=== PATIENT | male | born 1985 | race Caucasian/White ===

== ENCOUNTER → 2019-11-10 | Emergency (ER) | payer MEDICAID ==
[~2019-11-10] VITALS: Ht 170.2 cm; Wt 61.4 kg
[~2019-11-10] MED LIST: NO HOME MEDS; acetaminophen 325mg tablet PO ONE
[2019-11-10 22:18] VITALS: BP 125/78
--- NOTE | 2019-11-10 23:46 | NUR ---
PT ELOPED AFTER BEING SEEN BY PROVIDER. COVID AND FLU SWAB UNABE TO BE ADMINISTERED. TYLENOL UNABLE TO BE GIVEN WELL.
== END | disposition home or self-care (01) ==
LOC: ER 22:18
DX: R50.9 Fever, unspecified (principal); M19.90 Unspecified osteoarthritis, unspecified site; F15.90 Other stimulant use, unspecified, uncomplicated; Z86.73 Personal history of transient ischemic attack (TIA), and cerebral infarction without residual deficits; Z98.890 Other specified postprocedural states; Z72.89 Other problems related to lifestyle; Z59.0 Homelessness; Z88.0 Allergy status to penicillin; Z88.8 Allergy status to other drugs, medicaments and biological substances
CPT/HCPCS: 99281; 99282

== ENCOUNTER 2024-03-17 04:30 | Emergency (ER) | payer MEDICAID ==
[~2024-03-17] VITALS: Ht 177.8 cm; Wt 69.7 kg
[~2024-03-17 04:30] MED LIST changes: -acetaminophen 325mg tablet PO ONE
[2024-03-17 04:43] VITALS: BP 103/80; PULSE 83; RESP 18; TEMP 98.1; O2SAT 97
[2024-03-17] MEDS ORDERED: CLOB15OI21 TOP (05:00)
== END 2024-03-17 05:08 | disposition home or self-care (01) ==
LOC: ER 04:30
DX: R21 Rash and other nonspecific skin eruption (principal); M19.90 Unspecified osteoarthritis, unspecified site; F15.90 Other stimulant use, unspecified, uncomplicated; Z86.73 Personal history of transient ischemic attack (TIA), and cerebral infarction without residual deficits; Z88.0 Allergy status to penicillin; Z88.8 Allergy status to other drugs, medicaments and biological substances; Z79.82 Long term (current) use of aspirin; Z98.890 Other specified postprocedural states
CPT/HCPCS: 99283

== ENCOUNTER 2024-06-15 21:22 | Emergency (ER) | payer MEDICAID ==
[~2024-06-15] VITALS: Ht 177.8 cm; Wt 63.2 kg
[~2024-06-15 21:22] MED LIST changes: +CLOB15OI21 TOP
[2024-06-15] MEDS ORDERED: CEPH-585 PO (22:33)
[2024-06-15] MEDS: CefTRIAXone 1000mg IM Kit (w/lidocaine diluent) IM ONE (22:34)
[2024-06-15 23:11] VITALS: BP 132/85; PULSE 94; RESP 18; TEMP 98.7; O2SAT 96
== END 2024-06-15 23:00 | disposition home or self-care (01) ==
LOC: ER 21:23
DX: S97.81XA Crushing injury of right foot, initial encounter (principal); L03.115 Cellulitis of right lower limb; M19.90 Unspecified osteoarthritis, unspecified site; Z86.73 Personal history of transient ischemic attack (TIA), and cerebral infarction without residual deficits; Z88.0 Allergy status to penicillin; Z88.6 Allergy status to analgesic agent; W23.0XXA Caught, crushed, jammed, or pinched between moving objects, initial encounter; Y93.89 Activity, other specified; Y92.89 Other specified places as the place of occurrence of the external cause; Y99.8 Other external cause status
CPT/HCPCS: 73630; 96372; 99283; J0696